=== PATIENT | male | born 1985 | race Caucasian/White ===

== ENCOUNTER 2022-03-28 17:32 | Emergency (ER) | payer BC ==
[2022-03-28 18:03] VITALS: BP 123/79; PULSE 73; RESP 18; TEMP 98.4; BMI 22.1
== END 2022-03-28 18:27 | disposition home or self-care (01) ==
LOC: FER 17:32
DX: S74.10XA Injury of femoral nerve at hip and thigh level, unspecified leg, initial encounter (principal); X50.0XXA Overexertion from strenuous movement or load, initial encounter
CPT/HCPCS: 99281-25

== ENCOUNTER 2023-05-28 00:36 | Emergency (ER) | payer BC ==
[2023-05-28 00:56] VITALS: BP 116/77; RESP 18; TEMP 99.1; BMI 25.1
[2023-05-28] MEDS ORDERED: PANTOPRAZOLE SODIUM 40 MG in SODIUM CHLORIDE 100 ML IVPB ONE (01:02)
[2023-05-28] MEDS ORDERED: ACETAMINOPHEN 1000 MG/100 ML BAG IVPB ONE (01:02)
[2023-05-28] MEDS ORDERED: PANTOPRAZOLE SODIUM 40 MG VIAL ONE (01:04)
[2023-05-28] MEDS ORDERED: ACETAMINOPHEN INJECTION 100 ML IVPB ONE (01:04)
[2023-05-28] MEDS ORDERED: PANTOPRAZOLE 40 MG TABLET PO ONE ×2 (01:33→07:34)
[2023-05-28] MEDS ORDERED: ACETAMINOPHEN 500 MG TABLET (FP) ONE (01:33)
[2023-05-28 02:25] LABS: BASO % 0.2 % (0-2.0); HEMATOCRIT 40.1 % (35.4-49); HEMOGLOBIN 13.6 GM/dL (11.7-16.9); LYMPH % 10.7 % (8-40); MCH 28.9 pg (25.7-33.7); MCHC 33.8 g/dl (32.0-35.9); MEAN CELL VOLUME 85.3 fl (80-96); MEAN PLT VOLUME 10.9 fl (7.5-11.1); MONO % 8.7 % (3.8-10.2); NEUT % 79.4 % (42.8-82.8); PLATELET COUNT 174 10^3/uL (134-434); RDW 13.6 % (11.9-15.9); WHITE BLOOD COUNT 10.2 K/mm3 (4.0-10.0)
[2023-05-28 02:41] LABS: POTASSIUM 3.6 mmol/L (3.5-5.1)
[2023-05-28 02:43] LABS: CALCIUM 9.5 mg/dL (8.5-10.1)
[2023-05-28 02:44] LABS: ALBUMIN 4.4 g/dl (3.4-5.0)
[2023-05-28 02:47] LABS: CREATININE 0.9 mg/dL (0.55-1.3)
[2023-05-28 02:48] LABS: BILIRUBIN,TOTAL 0.7 mg/dL (0.2-1)
[2023-05-28 02:49] LABS: TOT PROT 7.8 g/dl (6.4-8.2)
[2023-05-28 02:53] VITALS: PULSE 100
[2023-05-28 03:07] LABS: BLOOD UREA NITROGEN 12.3 mg/dL (7-18)
[2023-05-28] MEDS ORDERED: ACETAMINOPHEN 500 MG TABLET (FP) PO ONE (07:34)
== END 2023-05-28 03:37 | disposition home or self-care (01) ==
LOC: FER 00:36
PROC: 3E033GC Introduction of Other Therapeutic Substance into Peripheral Vein, Percutaneous Approach (ICD-10-PCS; principal; 2023-05-28)
PROC: 3E033NZ Introduction of Analgesics, Hypnotics, Sedatives into Peripheral Vein, Percutaneous Approach (ICD-10-PCS; 2023-05-28)
DX: R07.1 Chest pain on breathing (principal); M25.512 Pain in left shoulder; R10.13 Epigastric pain; R14.0 Abdominal distension (gaseous); I45.10 Unspecified right bundle-branch block
CPT/HCPCS: 36415; 71045-TC-FY; 80053; 84484; 85025; 93005; 99285-25